=== PATIENT | male | born 1975 | race African-American/Black ===

== ENCOUNTER 2024-01-19 19:31 | Emergency (ER) | payer OTHER, BC ==
[2024-01-19 19:43] VITALS: BP 178/107; PULSE 70; RESP 20; TEMP 97.3; BMI 36.9
[2024-01-19] MEDS ORDERED: KETOROLAC TROMETHAMINE 15 MG/ML VIAL ONE (20:50)
[2024-01-19] MEDS ORDERED: ACETAMINOPHEN INJECTION 100 ML IVPB ONE (20:50)
[2024-01-19 20:52] LABS: BASO % 0.6 % (0-2.0); EOS % 1.2 % (0-4.5); HEMATOCRIT 38.9 % (35.4-49); HEMOGLOBIN 12.7 GM/dL (11.7-16.9); LYMPH % 27.7 % (8-40); MCHC 32.6 g/dl (32.0-35.9); MEAN CELL VOLUME 73.4 fl (80-96); MEAN PLT VOLUME 8.8 fl (7.5-11.1); MONO % 9.4 % (3.8-10.2); NEUT % 61.1 % (42.8-82.8); PLATELET COUNT 246 10^3/uL (134-434); RDW 17.9 % (11.9-15.9); WHITE BLOOD COUNT 3.7 K/mm3 (4.0-10.0)
[2024-01-19 20:54] LABS: EPI CELLS 15 /uL (0-25.1); HYALINE CASTS 5 /uL (0-3.1); PH,URINE 6.5 (5.0-8.0); URINE APPEARANCE CLEAR; URINE BACTERIA 14 /uL (0-1359); URINE BILIRUBIN NEGATIVE (NEGATIVE); URINE COLOR YELLOW; URINE GLUCOSE (UA) NEGATIVE (NEGATIVE); URINE KETONE TRACE (NEGATIVE); URINE LEUK ESTERASE NEGATIVE (NEGATIVE); URINE NITRITE NEGATIVE (NEGATIVE); URINE PROTEIN 2+ (NEGATIVE); URINE RBC 12 /uL (0-23.9); URINE WBC 11 /uL (0-25.8)
[2024-01-19] MEDS: ACETAMINOPHEN 1000 MG/100 ML BAG IVPB ONE (21:01)
[2024-01-19] MEDS: KETOROLAC TROMETHAMINE 15 MG/ML VIAL IVPUSH ONE (21:01)
[2024-01-19] MEDS: LACTATED RINGERS SOLUTION 1000 ML INFUS.BAG IV ONE (21:02)
[2024-01-19 21:18] LABS: POTASSIUM 4.8 mmol/L (3.5-5.1)
[2024-01-19 21:20] LABS: ALBUMIN 3.9 g/dl (3.4-5.0); CALCIUM 9.4 mg/dL (8.5-10.1)
[2024-01-19 21:21] LABS: BLOOD UREA NITROGEN 17.7 mg/dL (7-18)
[2024-01-19 21:24] LABS: CREATININE 1.4 mg/dL (0.55-1.3)
[2024-01-19 21:25] LABS: TOT PROT 8.1 g/dl (6.4-8.2)
[2024-01-19] MEDS ORDERED: amLODIPine BESYLATE 10 MG TABLET (FP) ONE (21:27)
[2024-01-19] MEDS: amLODIPine BESYLATE 10 MG TABLET (FP) PO ONE (21:36)
[2024-01-19] MEDS: METHOCARBAMOL 750 MG TAB PO ONE (22:23)
== END 2024-01-19 22:31 | disposition home or self-care (01) ==
LOC: JER 19:31
PROC: 3E033NZ Introduction of Analgesics, Hypnotics, Sedatives into Peripheral Vein, Percutaneous Approach (ICD-10-PCS; principal; 2024-01-19)
PROC: 3E0333Z Introduction of Anti-inflammatory into Peripheral Vein, Percutaneous Approach (ICD-10-PCS; 2024-01-19)
DX: R10.31 Right lower quadrant pain (principal); M54.50 Low back pain, unspecified; R31.9 Hematuria, unspecified; R35.0 Frequency of micturition; R30.0 Dysuria; I10 Essential (primary) hypertension
CPT/HCPCS: 36415; 74176-TC; 80053; 81003; 85025; 86850; 86900; 86901; 87086; 99284-25; J0131

== ENCOUNTER 2024-01-26 19:38 | Emergency (ER) | payer BC, OTHER ==
[2024-01-26 20:06] VITALS: BMI 36.2
[2024-01-26] MEDS ORDERED: ACETAMINOPHEN INJECTION 100 ML IVPB ONE (20:44)
[2024-01-26] MEDS: ACETAMINOPHEN 1000 MG/100 ML BAG IVPB ONE (21:00)
[2024-01-26 21:05] LABS: BASO % 0.6 % (0-2.0); EOS % 1.1 % (0-4.5); HEMATOCRIT 35.9 % (35.4-49); HEMOGLOBIN 11.6 GM/dL (11.7-16.9); LYMPH % 27.5 % (8-40); MCH 23.7 pg (25.7-33.7); MCHC 32.4 g/dl (32.0-35.9); MEAN CELL VOLUME 73.3 fl (80-96); MEAN PLT VOLUME 8.4 fl (7.5-11.1); MONO % 8.2 % (3.8-10.2); NEUT % 62.6 % (42.8-82.8); PLATELET COUNT 207 10^3/uL (134-434); RBC 4.89 M/mm3 (4.00-5.60); RDW 17.9 % (11.9-15.9); WHITE BLOOD COUNT 3.5 K/mm3 (4.0-10.0)
[2024-01-26 21:07] LABS: EPI CELLS 7 /uL (0-25.1); HYALINE CASTS 4 /uL (0-3.1); PH,URINE 5.5 (5.0-8.0); URINE APPEARANCE CLEAR; URINE BACTERIA 9 /uL (0-1359); URINE BILIRUBIN NEGATIVE (NEGATIVE); URINE COLOR YELLOW; URINE GLUCOSE (UA) NEGATIVE (NEGATIVE); URINE KETONE NEGATIVE (NEGATIVE); URINE LEUK ESTERASE NEGATIVE (NEGATIVE); URINE NITRITE NEGATIVE (NEGATIVE); URINE PROTEIN 1+ (NEGATIVE); URINE RBC 10 /uL (0-23.9); URINE WBC 9 /uL (0-25.8)
[2024-01-26 21:27] LABS: CALCIUM 9.3 mg/dL (8.5-10.1)
[2024-01-26 21:28] LABS: ALBUMIN 3.6 g/dl (3.4-5.0); BLOOD UREA NITROGEN 23.7 mg/dL (7-18)
[2024-01-26 21:31] LABS: CREATININE 1.5 mg/dL (0.55-1.3)
[2024-01-26 21:32] LABS: TOT PROT 7.5 g/dl (6.4-8.2)
[2024-01-26] MEDS ORDERED: KETOROLAC TROMETHAMINE 15 MG/ML VIAL ONE (21:44)
[2024-01-26] MEDS ORDERED: METHOCARBAMOL 500 MG TABLET ONE (21:44)
[2024-01-26] MEDS ORDERED: LIDOCAINE 4% PATCH TP ONE (21:44)
[2024-01-26] MEDS: KETOROLAC TROMETHAMINE 15 MG/ML VIAL IVPUSH ONE (21:50)
[2024-01-26] MEDS: LIDOCAINE 5% TOPICAL PATCH TP ONE (21:50)
[2024-01-26] MEDS: METHOCARBAMOL 500 MG TABLET PO ONE (21:50)
[2024-01-26] MEDS: LIDOCAINE PATCH REMOVAL MC SCH (22:37)
[2024-01-27 00:11] VITALS: BP 135/76; PULSE 70; RESP 18; TEMP 98.2
== END 2024-01-27 00:11 | disposition home or self-care (01) ==
LOC: JER 19:38
PROC: 3E033NZ Introduction of Analgesics, Hypnotics, Sedatives into Peripheral Vein, Percutaneous Approach (ICD-10-PCS; principal; 2024-01-26)
PROC: 3E0333Z Introduction of Anti-inflammatory into Peripheral Vein, Percutaneous Approach (ICD-10-PCS; 2024-01-26)
DX: M54.50 Low back pain, unspecified (principal); R31.9 Hematuria, unspecified; R10.11 Right upper quadrant pain; R10.13 Epigastric pain
CPT/HCPCS: 36415; 80053; 81003; 85025; 93005; 93010; 99284-25; J0131